=== PATIENT | male | born 1945 ===

== ENCOUNTER 2025-08-27 19:15 | Emergency (ER) | payer OTHER ==
[~2025-08-27] VITALS: Ht 157.5 cm; Wt 63.5 kg
[2025-08-27] MEDS ORDERED: NAPR500T14 (19:23)
[2025-08-27] MEDS ORDERED: NORFLEX100MG PO (19:42)
[2025-08-27] MEDS ORDERED: AMOX1TAB5 PO (19:42)
[2025-08-27] MEDS ORDERED: PROTONIX40 MG PO (19:42)
[2025-08-27] MEDS ORDERED: KETOROLAC TROMETHAMINE 60 MG VIAL IM ONE ×2 (19:45→20:17)
[2025-08-27] MEDS ORDERED: CEFTRIAXONE SODIUM 1,000 MG VIAL IM ONE (19:45)
[2025-08-27] MEDS ORDERED: CEFTRIAXONE SODIUM 1,000 MG VIAL ONE (20:17)
== END 2025-08-27 20:51 | disposition home or self-care (01) ==
LOC: ER 19:15
DX: K08.89 Other specified disorders of teeth and supporting structures (principal); K04.7 Periapical abscess without sinus